=== PATIENT | female | born 1960 | race Caucasian/White ===

== ENCOUNTER → 2016-12-26 | Outpatient (CLI) | payer OTHER ==
[~2016-12-26] MED LIST: ACETAMINOPHEN PO; ESOMEPRAZOLE MA40 MG PO; FISH OIL 1,2001 EAC2 PO; METOPROLOL TAR25 MG PO; MULTIPLE VITAMI1 T11 PO; ZANTAC150 MG PO
[2016-12-26 11:48] LABS: CHOLESTEROL 160 mg/dL (0-200); GLUCOSE RANDOM 81 mg/dL (70-110); HDL CHOLESTEROL 63 mg/dL (35-95); LDL CHOLESTEROL 87 mg/dL (-130); LDL/HDL RATIO 1 RATIO (0-4); TRIGLYCERIDES 48 mg/dL (10-160)
== END | disposition home or self-care (01) ==
LOC: CLAB 10:25
PROVIDERS: Surgery
DX: E66.01 Morbid (severe) obesity due to excess calories (principal)
CPT/HCPCS: 36415; 80061; 82947

== ENCOUNTER → 2017-07-04 | Outpatient (CLI) | payer SELFPAY | END | disposition home or self-care (01) | LOC: CBAR 08:04 | DX: E66.01 Morbid (severe) obesity due to excess calories (principal) | CPT/HCPCS: 76000 ==

== ENCOUNTER → 2017-07-04 | Outpatient (CLI) | payer OTHER ==
[2017-07-04 12:22] LABS: CHOLESTEROL 190 mg/dL (0-200); GLUCOSE FASTING 82 mg/dL (70-110); HDL CHOLESTEROL 75 mg/dL (35-95); LDL CHOLESTEROL 105 mg/dL (-130); LDL/HDL RATIO 1 RATIO (0-4); TRIGLYCERIDES 48 mg/dL (10-160)
== END | disposition home or self-care (01) ==
LOC: CLAB 11:22
PROVIDERS: Surgery
DX: E66.01 Morbid (severe) obesity due to excess calories (principal)
CPT/HCPCS: 36415; 80061; 82947